=== PATIENT | female | born 1965 | race Caucasian/White ===

== ENCOUNTER 2019-05-10 01:59 | Emergency (ER) | payer OTHER ==
[~2019-05-10] VITALS: Ht 160 cm; Wt 6.4 kg
[2019-05-10] MEDS ORDERED: FLUO40CA8 PO (02:11)
[2019-05-10] MEDS ORDERED: CYCL5TAB PO (02:11)
[2019-05-10] MEDS ORDERED: GABA-534 PO (02:11)
[2019-05-10 02:26] LABS: *BILIRUBIN,URIN NEGATIVE (NEGATIVE); *BLOOD, URINE NEGATIVE (NEGATIVE); *CLARITY,URINE CLEAR (CLEAR); *COLOR,URINE YELLOW (YELLOW); *KETONES,URINE NEGATIVE (NEGATIVE); *UROBILINOGEN,URINE 0.2 E.U./dl (NORMAL); LEUKOCYTE ESTERASE ,URINE NEGATIVE (NEGATIVE); NITRITE, URINE NEGATIVE (NEGATIVE); UGLUCOSE NEGATIVE (NEGATIVE)
--- NOTE | 2019-05-10 02:30 | NUR ---
Patient discharged to home in stable conditon. Written and verbal after care instructions given. Patient verbalizes understanding of instructions. patient ambulate with steady gait. all belongings and exit care package taken home with patient. Patient stated her friend will be driving her home.
[2019-05-10] MEDS ORDERED: KETOROLAC TROMETHAMINE 30 MG INJ ONE (02:31)
[2019-05-10] MEDS ORDERED: DEXAMETHASONE SOD PHOSPHATE 4 MG INJ ONE (02:31)
[2019-05-10] MEDS: DEXAMETHASONE SOD PHOSPHATE 4 MG INJ IM ONE (02:37)
[2019-05-10] MEDS: KETOROLAC TROMETHAMINE 30 MG INJ IM ONE (02:37)
[2019-05-10 03:17] VITALS: BP 150/84
== END 2019-05-10 02:30 | disposition home or self-care (01) ==
LOC: ER 02:07
DX: M54.5 Low back pain (principal); M25.512 Pain in left shoulder; F17.290 Nicotine dependence, other tobacco product, uncomplicated; F32.9 Major depressive disorder, single episode, unspecified; Z71.6 Tobacco abuse counseling; Z79.899 Other long term (current) drug therapy; Z59.0 Homelessness
CPT/HCPCS: A4663; J1100; J1885

== ENCOUNTER 2019-07-23 23:29 | Emergency (ER) | payer OTHER ==
[~2019-07-23] VITALS: Ht 160 cm; Wt 73.9 kg
[~2019-07-23 23:29] MED LIST: CYCL5TAB PO; FLUO40CA8 PO; GABA-534 PO
--- NOTE | 2019-07-24 00:18 | NUR ---
Patient discharged to home in stable conditon. Written and verbal after care instructions given. Patient verbalizes understanding of instructions. Patient ambulated with stable gait.
[2019-07-24 00:19] VITALS: BP 131/81
== END 2019-07-24 00:19 | disposition home or self-care (01) ==
LOC: ER 23:31
DX: S40.862A Insect bite (nonvenomous) of left upper arm, initial encounter (principal); S40.861A Insect bite (nonvenomous) of right upper arm, initial encounter; L03.113 Cellulitis of right upper limb; L03.114 Cellulitis of left upper limb; F32.9 Major depressive disorder, single episode, unspecified; F17.200 Nicotine dependence, unspecified, uncomplicated; Z59.0 Homelessness; Z79.899 Other long term (current) drug therapy; W57.XXXA Bitten or stung by nonvenomous insect and other nonvenomous arthropods, initial encounter; Y93.89 Activity, other specified; Y92.89 Other specified places as the place of occurrence of the external cause; Y99.8 Other external cause status
CPT/HCPCS: A4663

== ENCOUNTER 2019-08-07 07:28 | Emergency (ER) | payer OTHER ==
[~2019-08-07] VITALS: Ht 160 cm; Wt 72.6 kg
--- NOTE | 2019-08-07 07:40 | NUR ---
Dr. Malhotra at the bedside for MSE.
--- NOTE | 2019-08-07 07:49 | NUR ---
Patient discharged to home in stable conditon. Written and verbal after care instructions given. Patient verbalizes understanding of instructions.
== END 2019-08-07 07:50 | disposition home or self-care (01) ==
LOC: ER 07:28
DX: S40.861A Insect bite (nonvenomous) of right upper arm, initial encounter (principal); L08.9 Local infection of the skin and subcutaneous tissue, unspecified; F32.9 Major depressive disorder, single episode, unspecified; F17.200 Nicotine dependence, unspecified, uncomplicated; Z79.899 Other long term (current) drug therapy; W57.XXXA Bitten or stung by nonvenomous insect and other nonvenomous arthropods, initial encounter; Y93.89 Activity, other specified; Y92.89 Other specified places as the place of occurrence of the external cause; Y99.8 Other external cause status
CPT/HCPCS: A4663

== ENCOUNTER 2019-10-01 22:01 | Emergency (ER) | payer OTHER ==
[~2019-10-01] VITALS: Ht 167.6 cm; Wt 68.0 kg
--- NOTE | 2019-10-01 22:09 | NUR ---
DIRECTOR OF ASSESSING AT BEDSIDE
--- NOTE | 2019-10-01 22:25 | NUR ---
Patient discharged to home in stable conditon. Written and verbal after care instructions given. Patient verbalizes understanding of instructions. AMBULATORY W/ ANTALGIC GAIT ALL BELONGINGS W/ PT
--- NOTE | 2019-10-01 22:26 | NUR ---
Patient discharged to home in stable conditon. Written and verbal after care instructions given. Patient verbalizes understanding of instructions. VSS stable for discharge. Patient a/o x4. patient self ambulatory with steady gait. Patient exit care package and personal belongings taken home with the patient at discharge. Neurovascular assessment done prior to discharge. Capillary refill to left foot <3 seconds. Patient has wide ROM of left lower extremity. patient denies any pain/discomfort at discharge.
[2019-10-01 22:28] VITALS: BP 147/75
== END 2019-10-01 22:28 | disposition home or self-care (01) ==
LOC: ER 22:06
DX: S93.402A Sprain of unspecified ligament of left ankle, initial encounter (principal); F32.9 Major depressive disorder, single episode, unspecified; F17.200 Nicotine dependence, unspecified, uncomplicated; Z79.899 Other long term (current) drug therapy; X50.1XXA Overexertion from prolonged static or awkward postures, initial encounter; Y93.89 Activity, other specified; Y92.89 Other specified places as the place of occurrence of the external cause; Y99.8 Other external cause status
CPT/HCPCS: 73610; A4663

== ENCOUNTER 2019-11-28 23:12 | Emergency (ER) | payer OTHER ==
[~2019-11-28] VITALS: Ht 160 cm; Wt 74.4 kg
[2019-11-28] MEDS ORDERED: ONDANSETRON 4 MG/2 ML VIAL ONE (23:53)
[2019-11-28] MEDS ORDERED: HYDROMORPHONE 2 MG/1 ML DISP.SYRIN ONE (23:53)
[2019-11-29] MEDS ORDERED: HYDROMORPHONE 1 MG/1 ML DISP.SYRIN IM ONE
[2019-11-29] MEDS ORDERED: ONDANSETRON 4 MG/2 ML VIAL IM ONE
--- NOTE | 2019-11-29 00:05 | NUR ---
PT ABLE TO TOLERATE MEDICATIONS
--- NOTE | 2019-11-29 00:16 | NUR ---
Patient discharged to home in stable conditon. Written and verbal after care instructions given. Patient verbalizes understanding of instructions. AMBULATORY W/ STABLE GAIT ALL BELONGINGS W/ PT WILL TAKE UBER TO GO HOME
[2019-11-29 00:18] VITALS: BP 119/78
== END 2019-11-29 00:18 | disposition home or self-care (01) ==
LOC: ER 23:13
DX: H66.91 Otitis media, unspecified, right ear (principal); F17.200 Nicotine dependence, unspecified, uncomplicated; F32.9 Major depressive disorder, single episode, unspecified; Z79.899 Other long term (current) drug therapy
CPT/HCPCS: 96372 ×2; 99283; J1170; J2405; A4663

== ENCOUNTER 2019-12-12 03:45 | Emergency (ER) | payer OTHER ==
[~2019-12-12] VITALS: Ht 160 cm; Wt 72.6 kg
[2019-12-12] MEDS ORDERED: [UNRECOGNIZED DRUG - OTHER] MC ONE (03:49)
--- NOTE | 2019-12-12 03:50 | NUR ---
Dr. Beasley at bedside for MSE
[2019-12-12] MEDS ORDERED: KETOROLAC TROMETHAMINE 30 MG INJ ONE (04:10)
[2019-12-12] MEDS ORDERED: KETOROLAC TROMETHAMINE 30 MG INJ IM ONE (04:15)
[2019-12-12] MEDS ORDERED: HYDROCODONE/APAP 5-325MG TABLET ONE (04:41)
--- NOTE | 2019-12-12 04:44 | NUR ---
Patient discharged to home in stable conditon. Written and verbal after care instructions given. Patient verbalizes understanding of instructions. Patient ambulating with steady gait. Instructed patient not to drive. Friend Dick at bedside to drive patient home
[2019-12-12] MEDS ORDERED: HYDROCODONE/APAP 5-325MG TABLET PO ONE (04:45)
[2019-12-12 04:48] VITALS: BP 118/73
== END 2019-12-12 04:44 | disposition home or self-care (01) ==
LOC: ER 03:48
DX: S02.5XXA Fracture of tooth (traumatic), initial encounter for closed fracture (principal); F17.290 Nicotine dependence, other tobacco product, uncomplicated; Z79.899 Other long term (current) drug therapy; X58.XXXA Exposure to other specified factors, initial encounter; Y93.89 Activity, other specified; Y92.89 Other specified places as the place of occurrence of the external cause; Y99.8 Other external cause status
CPT/HCPCS: 64400; 99284; 99406; J1885; J3490; A4663

== ENCOUNTER 2022-05-22 04:47 | Emergency (ER) | payer OTHER ==
[~2022-05-22] VITALS: Ht 160 cm; Wt 77.1 kg
--- NOTE | 2022-05-22 05:24 | NUR ---
Lab at bedside drawing blood.
[2022-05-22 05:35] LABS: HEMATOCRIT 35.9 % (31.2-41.9); MEAN CORPUSCULAR HEMOGLOBIN 28.9 uug (24.7-32.8); MEAN CORPUSCULAR VOLUME 83.6 fL (75.5-95.3); PLATELET COUNT (AUTO) 368 K/uL (179-408)
[2022-05-22 05:49] LABS: BILIRUBIN,DIRECT 0.1 mg/dL (0.0-0.2); BILIRUBIN,TOTAL 0.3 mg/dL (0.2-1.0)
[2022-05-22] MEDS ORDERED: HYDR-500 PO (05:55)
[2022-05-22] MEDS ORDERED: [UNRECOGNIZED DRUG - CODE] PO (05:55)
[2022-05-22] MEDS ORDERED: CHOL100099 PO (05:55)
[2022-05-22 06:05] LABS: POTASSIUM 3.7 mmol/L (3.5-5.1)
[2022-05-22 06:10] VITALS: BP 119/83
== END 2022-05-22 06:27 | disposition home or self-care (01) ==
LOC: ER 04:52
DX: E08.628 Diabetes mellitus due to underlying condition with other skin complications (principal); S30.861A Insect bite (nonvenomous) of abdominal wall, initial encounter; S20.369A Insect bite (nonvenomous) of unspecified front wall of thorax, initial encounter; W57.XXXA Bitten or stung by nonvenomous insect and other nonvenomous arthropods, initial encounter; Y92.89 Other specified places as the place of occurrence of the external cause; Z83.3 Family history of diabetes mellitus; Z72.0 Tobacco use
CPT/HCPCS: 36415; 83735; 85025; A4663

== ENCOUNTER 2024-10-27 05:04 | Emergency (ER) | payer MEDICAID, OTHER ==
[~2024-10-27] VITALS: Ht 160 cm; Wt 70.3 kg
[~2024-10-27 05:04] MED LIST changes: +CHOL100099 PO; +HYDR-500 PO; +[UNRECOGNIZED DRUG - CODE] PO
[2024-10-27] MEDS: GUAIFENESIN/CODEINE 5 ML LIQUID UDC PO ONE (05:59)
[2024-10-27] MEDS ORDERED: GUAIFENESIN/CODEINE 5 ML LIQUID UDC ONE (05:59)
[2024-10-27] MEDS ORDERED: BENZ-13 PO (06:17)
[2024-10-27] MEDS ORDERED: ALBU18HF2 INH (06:17)
[2024-10-27] MEDS ORDERED: AZIT250T PO (06:17)
[2024-10-27] MEDS ORDERED: GUAIFENESIN/DEXTROMETHORPHAN 5 ML UDC PO ONE (07:45)
[2024-10-27] MEDS ORDERED: DEXAMETHASONE SOD PHOSPHATE 4 MG INJ IM ONE (07:45)
[2024-10-27] MEDS ORDERED: DEXAMETHASONE SOD PHOSPHATE 4 MG INJ ONE (07:48)
[2024-10-27] MEDS: IPRATROPIUM BROMIDE 0.5 MG/2.5 ML NEBU NEB ONE (07:51)
[2024-10-27] MEDS ORDERED: FLUT1BLS15 INH (08:02)
[2024-10-27 08:45] VITALS: O2SAT 96
[2024-10-27] MEDS: ALBUTEROL SULFATE 2.5 MG/3 ML NEBU NEB ONE (08:56)
[2024-10-27 09:00] VITALS: O2SAT 98
[2024-10-27 09:11] VITALS: BP 138/79; TEMP 98.3; O2SAT 98
== END 2024-10-27 09:10 | disposition home or self-care (01) ==
LOC: ER 05:11
DX: J40 Bronchitis, not specified as acute or chronic (principal); F17.200 Nicotine dependence, unspecified, uncomplicated; F32.A Depression, unspecified; F43.10 Post-traumatic stress disorder, unspecified; Z20.822 Contact with and (suspected) exposure to COVID-19; Z79.899 Other long term (current) drug therapy
CPT/HCPCS: 71045; A4606; A4663; J1100; J3590